=== PATIENT | male | born 1980 | race Two or more races ===

== ENCOUNTER 2019-04-29 23:15 | Inpatient (IN) | payer MEDICAID ==
[~2019-04-29] VITALS: Ht 157.5 cm; Wt 84.0 kg
--- NOTE | 2019-04-29 23:36 | NUR ---
ED Nurse Note: Pt ambulated to Ed from home c/o 03/01 Rsided lower abdominal pain with N. Pt vomitted last night, denies trauma. Pt is A&Ox4, VSS
[2019-04-29 23:48] VITALS: BP 126/79
--- NOTE | 2019-04-29 23:52 | Emergency Room Report ---
History of Present Illness General Chief Complaint: Abdominal Pain Source: Patient Present Illness HPI Disclaimer: Please note that this report is being documented using [employer] technology. This can lead to erroneous entry secondary to incorrect interpretation by the dictating instrument. HPI: 38-year-old male with no reported medical history presents for evaluation of abdominal pain. Symptoms started approximately 12 hours ago. He noted a lower abdominal cramping that was initially bilateral and suprapubic that is since migrated to the right lower quadrant. He has had multiple episodes of nonbloody and nonbilious emesis and continues to complain of nausea. Denies diarrhea, dysuria, flank pain or fever. No prior abdominal surgeries, no previous visits to the hospital or other instances of abdominal pain. No known sick contacts. No new foods or recent travel. Took some Tylenol earlier in the day without improvement. PMH: Denies PSH: Denies Allergies: Iodine listed in medical chart the patient denies Social Hx: Denies drug or alcohol abuse Allergies: Coded Allergies: No Known Allergies (Unverified , 04/29/19) Nursing Documentation-PMH Past Medical History: No Stated History Review of Systems All Other Systems: negative except mentioned in HPI Physical Exam Vital Signs Date Time Temp Pulse Resp B/P (MAP) Pulse Ox O2 Delivery O2 Flow Rate FiO2 04/29/19 23:30 99.3 82 18 126/79 (95) 95 Room Air General: Awake and alert, appears uncomfortable HEENT: NC/AT. EOMI. dry mucous membranes Cardiovascular: RRR. S1 and S2 normal. No murmur appreciated Resp: Normal work of breathing. No cough, wheezing or crackles appreciated Abdomen: Abdomen is soft, nondistended. Tender to palpation over McBurney's point with positive rebound. Rovsing sign is negative. Obturator and psoas signs are positive. CVA tenderness negative Skin: Intact. No abrasions, laceration or rash over the exposed skin MSK: Normal tone and bulk. Moving all extremities. No obvious deformity. Neuro: Awake and alert. Mentating appropriately. Back/Spine: No flank pain or CVA tenderness Medical Decision Making Diagnostic Impression: Primary Impression: Appendicitis ER Course 38-year-old male presents for evaluation of abdominal pain now 03/31 with nausea and vomiting of 12 hours duration. Differential includes was not limited to appendicitis, cholecystitis, pancreatitis, gastritis, gastroenteritis , constipation, diverticulitis, bowel obstruction. Appendicitis appears to be the most likely other than a viral syndrome or possible constipation as he has not had a bowel movement in 1 [address] scan of the abdomen as well as labs provide IV fluids, antiemetics and pain medications. Laboratory Tests Test 04/29/19 23:40 04/29/19 23:53 Urine Color Yellow Urine Appearance Clear Urine pH 8 (4.5-8.0) Urine Specific [place] 1.010 (1.005-1.035) Urine Protein 2+ (NEGATIVE) H Urine Glucose (UA) Negative (NEGATIVE) Urine Ketones Negative (NEGATIVE) Urine Blood Negative (NEGATIVE) Urine Nitrite Negative (NEGATIVE) Urine Bilirubin Negative (NEGATIVE) Urine Urobilinogen Normal MG/DL (0.0-1.0) Urine Leukocyte Esterase 1+ (NEGATIVE) H Urine RBC 0-2 /HPF (0 - 0) H Urine WBC 2-4 /HPF (0 - 0) Urine Squamous Epithelial Cells Occasional /LPF Urine Bacteria Occasional /HPF (NONE) Urine Mucus Few /LPF (NONE/OCC) H White Blood Count 22.7 K/UL (4.8-10.8) *H Red Blood Count 5.29 M/UL (4.70-6.10) Hemoglobin 15.8 G/DL (14.2-18.0) Hematocrit 43.9 % (42.0-52.0) Mean Corpuscular Volume 83 FL (80-99) Mean Corpuscular Hemoglobin 29.9 PG (27.0-31.0) Mean Corpuscular Hemoglobin Concent 36.0 G/DL (32.0-36.0) Red Cell Distribution Width 10.7 % (11.6-14.8) L Platelet Count 331 K/UL (150-450) Mean Platelet Volume 7.5 FL (6.5-10.1) Neutrophils (%) (Auto) % (45.0-75.0) Lymphocytes (%) (Auto) % (20.0-45.0) Monocytes (%) (Auto) % (1.0-10.0) Eosinophils (%) (Auto) % (0.0-3.0) Basophils (%) (Auto) % (0.0-2.0) Differential Total Cells Counted 100 Neutrophils % (Manual) 81 % (45-75) H Lymphocytes % (Manual) 13 % (20-45) L Monocytes % (Manual) 6 % (1-10) Eosinophils % (Manual) 0 % (0-3) Basophils % (Manual) 0 % (0-2) Band Neutrophils 0 % (0-8) Platelet Estimate Adequate Platelet Morphology Normal Sodium Level 141 MMOL/L (136-145) Potassium Level 3.3 MMOL/L (3.5-5.1) L Chloride Level 101 MMOL/L (98-107) Carbon Dioxide Level 31 MMOL/L (21-32) Anion Gap 10 mmol/L (5-15) Blood Urea Nitrogen 17 mg/dL (7-18) Creatinine 0.8 MG/DL (0.55-1.30) Estimate Glomerular Filtration Rate > 60 mL/min (>60) Glucose Level 145 MG/DL (74-106) H Calcium Level 8.7 MG/DL (8.5-10.1) Total Bilirubin 0.8 MG/DL (0.2-1.0) Aspartate Amino Transferase (AST) 24 U/L (15-37) Alanine Aminotransferase (ALT) 51 U/L (12-78) Alkaline Phosphatase 81 U/L (46-116) Total Protein 8.1 G/DL (6.4-8.2) Albumin 4.3 G/DL (3.4-5.0) Globulin 3.8 g/dL Albumin/Globulin Ratio 1.1 (1.0-2.7) Lipase 104 U/L (73-393) Reevaluation Time: 01:12 Last Vital Signs Date Time Temp Pulse Resp B/P (MAP) Pulse Ox O2 Delivery O2 Flow Rate FiO2 04/29/19 23:30 99.3 82 18 126/79 (95) 95 Room Air Reevaluation Impression CT scan shows a large fecalith and a dilated appendix without signs of perforation. There is some periappendiceal stranding consistent with acute appendicitis. Official CT interpretation is pending. Patient's vital signs remained stable. He does have an elevated white count and will be given Zosyn. Preop labs will be sent. Patient will require admission and surgical evaluation. Dr. Ni is aware the patient will evaluate in the morning. Will admit to Dr. Lukas garcia as a panel admission. Disposition: ADMITTED INPATIENT Condition: Serious Dann Mishra MD Apr 29, 2019 23:52
[2019-04-30] VITALS (16 sets, daily range): BP systolic 112–137; BP diastolic 60–80
[2019-04-30] MEDS ORDERED: Morphine Sulfate 4mg/ml Inj (IV USE ONLY) IVP ONE
[2019-04-30] MEDS ORDERED: Omnipaque-300 100ml vial INJ PRN
[2019-04-30 00:08] LABS: HEMATOCRIT 43.9 % (42.0-52.0); HEMOGLOBIN 15.8 G/DL (14.2-18.0); MEAN CORPUSCULAR VOLUME 83 FL (80-99); PLATELET COUNT 331 K/UL (150-450); RED BLOOD COUNT 5.29 M/UL (4.70-6.10); RED CELL DISTRIBUTION WIDTH 10.7 % (11.6-14.8)
[2019-04-30 00:09] LABS: WHITE BLOOD COUNT 22.7 K/UL (4.8-10.8)
[2019-04-30 00:10] LABS: APPEARANCE,URINE CLEAR; BILIRUBIN, URINE NEGATIVE (NEGATIVE); GLUCOSE, URINE (UA) NEGATIVE (NEGATIVE); KETONES,URINE NEGATIVE (NEGATIVE); LEUKOCYTE ESTERASE ,URINE 1+ (NEGATIVE); NITRITE,URINE NEGATIVE (NEGATIVE); PH,URINE 8 (4.5-8.0); PROTEIN,URINE 2+ (NEGATIVE); UROBILINOGEN,URINE NORMAL MG/DL (0.0-1.0)
[2019-04-30 00:11] LABS: COLOR,URINE YELLOW
[2019-04-30 00:17] LABS: ANION GAP 10 mmol/L (5-15); BLOOD UREA NITROGEN 17 mg/dL (7-18); CALCIUM 8.7 MG/DL (8.5-10.1); CARBON DIOXIDE 31 MMOL/L (21-32); CHLORIDE 101 MMOL/L (98-107); CREATININE 0.8 MG/DL (0.55-1.30); POTASSIUM 3.3 MMOL/L (3.5-5.1); SODIUM 141 MMOL/L (136-145)
[2019-04-30 00:22] LABS: ALANINE AMINOTRANSFERASE 51 U/L (12-78); ALBUMIN 4.3 G/DL (3.4-5.0); ALBUMIN/GLOBULIN RATIO 1.1 (1.0-2.7); ALKALINE PHOSPHATASE 81 U/L (46-116); ASPARTATE AMINO TRANSFERASE 24 U/L (15-37); BILIRUBIN,TOTAL 0.8 MG/DL (0.2-1.0)
[2019-04-30] MEDS ORDERED: Piperacillin/Tazobactam 3.375 GM in NS 110 ML IVPB ONE (01:15)
--- NOTE | 2019-04-30 01:23 | Diagnostic Imaging Report ---
EXAM: CT Abdomen and Pelvis With Intravenous Contrast CLINICAL HISTORY: PAIN TECHNIQUE: Axial computed tomography images of the abdomen and pelvis with intravenous contrast. CTDI is 16 mGy and DLP is 1073 mGy-cm. One or more of the following dose reduction techniques were used: automated exposure control, adjustment of the mA and or kV according to patient size, use of iterative reconstruction technique. COMPARISON: No relevant prior studies available. FINDINGS: Lung bases: Short segment linear subsegmental atelectasis in the lung bases. ABDOMEN: Liver: Unremarkable. No mass. Gallbladder and bile ducts: Unremarkable. No calcified stones. No ductal dilation. Pancreas: Unremarkable. No mass. No ductal dilation. Spleen: Unremarkable. No splenomegaly. Adrenals: Unremarkable. No mass. Kidneys and ureters: Unremarkable. No solid mass. No hydronephrosis. Stomach and bowel: There are prominent fluid-filled loops of small bowel is well. Fluid is seen within loops of colon. No obstruction. No mucosal thickening. PELVIS: Appendix: The appendix is abnormally dilated up to 12 mm with mucosal hyperenhancement and periappendiceal inflammation consistent with acute appendicitis. Intraluminal 8 mm appendicolith is noted. Bladder: Unremarkable. No mass. Reproductive: Unremarkable as visualized. ABDOMEN and PELVIS: Intraperitoneal space: Unremarkable. No free air. No significant fluid collection. Bones joints: No acute fracture. No dislocation. Soft tissues: Unremarkable. Vasculature: Unremarkable. No abdominal aortic aneurysm. Lymph nodes: Unremarkable. No enlarged lymph nodes. IMPRESSION: 1. Findings consistent with acute appendicitis. No free air or abscess. 2. Somewhat prominent fluid-filled loops of small bowel without bowel obstruction. Question reactive ileus or enteritis. <MYCVCSECTION> Critical Value [employer] 04 30 19 01:29 Call Doctor Regarding Appendicitis, called Dr. Shi on 04 30 01:28 (-08:00)
[2019-04-30 01:26] LABS: INR 1.1 (0.9-1.1)
--- NOTE | 2019-04-30 02:30 | NUR ---
TRANSFER TO FLOOR: Patient transferred to as ordered, per Dr Car. Report given to CHRISTOPHER Lea. Belongings and medications given to . Family and or S/O informed of transfer.
[2019-04-30] MEDS ORDERED: Morphine Sulfate 2mg/ml Inj(IV/IM USE ONLY) IVP PRN (02:45)
[2019-04-30] MEDS ORDERED: Morphine Sulfate 4mg/ml Inj (IV USE ONLY) IVP PRN (02:45)
--- NOTE | 2019-04-30 03:38 | NUR ---
ADMISSION NOTE: Pt admitted from ED at 0230. Pt is A/Ox4 with stable VS. Orders reviewed and physical assessment completed. Skin is intact. Pt oriented to room and call garduno usage. Belongings accounted for with RN. Bed in low position and locked, call garduno is within reach. Will continue to monitor. Dr. Gaytan paged at approx. 0300 for admission orders.
--- NOTE | 2019-04-30 07:25 | NUR ---
HAND-OFF: Report given to Ramo/Paula.
--- NOTE | 2019-04-30 07:25 | NUR ---
NURSE NOTE: Dr. Sykes was paged at 0300 and again at 0600 for admission orders. ED Doctor Dann Mishra placed standing orders overnight for pt. Charge nurse made aware. Nurse house moving supervisor made aware 0715.
--- NOTE | 2019-04-30 08:05 | NUR ---
NURSE NOTES: Dr. Sosa ordered D5NS @75ml/hr, Kcl 20meq IVPB one time. Order read back and will put it in.
[2019-04-30] MEDS ORDERED: D5NS 1,000 ML IV SCH (08:15)
--- NOTE | 2019-04-30 08:37 | Pre-Procedure Note/Attestation ---
Pre-Procedure Note/Attestation Complete Prior to Procedure Planned Procedure: not applicable Procedure Narrative: Laparoscopic appendectomy possible open appendectomy Indications for Procedure Pre-Operative Diagnosis: acute appendicitis Attestation I attest that I discussed the nature of the procedure; its benefits; risks and complications; and alternatives (and the risks and benefits of such alternatives ), prior to the procedure, with the patient (or the patient's legal health and safety representative). I attest that, if there was a reasonable possibility of needing a blood transfusion, the patient (or the patient's legal health and safety representative) was given the [facility] standardized written summary, pursuant to the [employer]ancarlos Deja Blood Safety Act ([place] Health and Safety Code # 1645, as amended). I attest that I re-evaluated the patient just prior to the surgery and that there has been no change in the patient's H&P, except as documented below: Francisco Ni MD Apr 30, 2019 08:37
--- NOTE | 2019-04-30 09:15 | Pre-op HX & Phy Repo 2 SIG ---
DATE OF ADMISSION: 04/30/2019 PREOPERATIVE CONSULTATION REASON FOR CONSULTATION: Abdominal pain. REQUESTING PHYSICIAN: ER Physician. HISTORY OF PRESENT ILLNESS: This is a 38-year-old male, who presented to emergency room complaining of abdominal pain since the night before last, which was 04/28/2019, which makes it basically 36 hours ago. This pain was initially located at the epigastrium and then it localized at right lower quadrant. The pain was associated with nausea and vomiting. He had a normal bowel movement 2 days ago. He denies any fever, cough, dysuria, or frequency. He denies any previous history of similar pain. PAST MEDICAL HISTORY: He denies allergies, asthma, diabetes, hypertension, cardiac or renal diseases. PAST SURGICAL HISTORY: None. MEDICATIONS: None. SOCIAL HISTORY: The patient is a 38-year-old male, who is and father of 2 children. 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 Denies smoked. Drinks occasionally. REVIEW OF SYSTEMS: Noncontributory. PHYSICAL EXAMINATION: GENERAL: The patient appeared to be a well-developed, well-nourished, 38-year-old, male, lying on the bed, complaining of abdominal pain. HEENT: Head is normocephalic and atraumatic. Eyes, pupils are equal, round, and reactive to light. Mouth is clear. NECK: There is no palpable thyromegaly or adenopathy. CHEST: Clear to auscultation and percussion. HEART: There is no gallop or murmur. S1 and S2 are within normal limits. ABDOMEN: Soft and flat with tenderness and guarding at right lower quadrant. There is no organomegaly. Bowel sounds are audible. GENITAL: Normal. EXTREMITIES: Within normal limits. LABORATORY DATA: CBC has shown a WBC of 22,700 with a left shift. Chemistry is normal except for the potassium, which is 3.2 and the blood glucose is about 150. The urine is within normal limits. The CAT scan of the abdomen has been interpreted as acute appendicitis. ASSESSMENT: Acute appendicitis. PLAN: After rehydration, the patient will undergo a laparoscopic appendectomy, possible open appendectomy. The risks and benefits have been explained to him. He understood and granted consent. Francisco Ni M.D. DR: VIK JOB#: [id number] CC:
[2019-04-30] MEDS ORDERED: Sterile Water Irrig 1000ml IRRIG ONE (09:30)
[2019-04-30] MEDS ORDERED: NS Irrig 1000ml ONE (09:30)
[2019-04-30] MEDS ORDERED: LR 1000ml ONE (09:30)
[2019-04-30] MEDS ORDERED: Rocuronium Bromide 50mg/5ml Inj IV ONE (09:30)
[2019-04-30] MEDS ORDERED: LR 1000ml 1,000 ML IVLG SCH (09:40)
--- NOTE | 2019-04-30 09:40 | Anethesia Preoperative Eval ---
Anesthesia Pre-op PMH/ROS General Date of Evaluation: Apr 30, 2019 Time of Evaluation: 09:36 Anesthesiologist: Maya ASA Score: ASA 2 - Emergency Mallampati Score Class I : Soft palate, uvula, fauces, pillars visible Class II: Soft palate, uvula, fauces visible Class III: Soft palate, base of uvula visible Class IV: Only hard plate visible Mallampati Classification: Class III Surgeon: Raine Diagnosis: Acute Appendicitis Surgical Procedure: Laparoscopic Appendectomy Anesthesia History: none Family History: no anesthesia problems Allergies: Coded Allergies: No Known Allergies (Unverified , 04/29/19) Medications: see eMAR Patient NPO?: Yes Past Medical History Other: obesity - BMIO 34 Anesthesia Pre-op Phys. Exam Physician Exam Last Vital Signs Date Time Temp Pulse Resp B/P (MAP) Pulse Ox O2 Delivery O2 Flow Rate FiO2 04/30/19 09:00 Room Air 04/30/19 08:00 99.9 68 18 118/68 (85) 96 Constitutional: NAD Neurologic: CN 2-12 intact Cardiovascular: RRR Respiratory: CTA Gastrointestinal: S/NT/ND Airway Exam Mallampati Score: Class III MO: limited ROM: full Teeth: intact Anesthesia Pre-op A/P Labs Hematology Test 04/29/19 23:53 White Blood Count 22.7 K/UL (4.8-10.8) *H Red Blood Count 5.29 M/UL (4.70-6.10) Hemoglobin 15.8 G/DL (14.2-18.0) Hematocrit 43.9 % (42.0-52.0) Mean Corpuscular Volume 83 FL (80-99) Mean Corpuscular Hemoglobin 29.9 PG (27.0-31.0) Mean Corpuscular Hemoglobin Concent 36.0 G/DL (32.0-36.0) Red Cell Distribution Width 10.7 % (11.6-14.8) L Platelet Count 331 K/UL (150-450) Mean Platelet Volume 7.5 FL (6.5-10.1) Neutrophils (%) (Auto) % (45.0-75.0) Lymphocytes (%) (Auto) % (20.0-45.0) Monocytes (%) (Auto) % (1.0-10.0) Eosinophils (%) (Auto) % (0.0-3.0) Basophils (%) (Auto) % (0.0-2.0) Differential Total Cells Counted 100 Neutrophils % (Manual) 81 % (45-75) H Lymphocytes % (Manual) 13 % (20-45) L Monocytes % (Manual) 6 % (1-10) Eosinophils % (Manual) 0 % (0-3) Basophils % (Manual) 0 % (0-2) Band Neutrophils 0 % (0-8) Platelet Estimate Adequate Platelet Morphology Normal Coagulation Test 04/29/19 23:53 Prothrombin Time 11.4 SEC (9.30-11.50) Prothromb Time International Ratio 1.1 (0.9-1.1) Activated Partial Thromboplast Time 28 SEC (23-33) Chemistry Test 04/29/19 23:53 Sodium Level 141 MMOL/L (136-145) Potassium Level 3.3 MMOL/L (3.5-5.1) L Chloride Level 101 MMOL/L (98-107) Carbon Dioxide Level 31 MMOL/L (21-32) Anion Gap 10 mmol/L (5-15) Blood Urea Nitrogen 17 mg/dL (7-18) Creatinine 0.8 MG/DL (0.55-1.30) Estimat Glomerular Filtration Rate > 60 mL/min (>60) Glucose Level 145 MG/DL (74-106) H Calcium Level 8.7 MG/DL (8.5-10.1) Total Bilirubin 0.8 MG/DL (0.2-1.0) Aspartate Amino Transf (AST/SGOT) 24 U/L (15-37) Alanine Aminotransferase (ALT/SGPT) 51 U/L (12-78) Alkaline Phosphatase 81 U/L (46-116) Total Protein 8.1 G/DL (6.4-8.2) Albumin 4.3 G/DL (3.4-5.0) Globulin 3.8 g/dL Albumin/Globulin Ratio 1.1 (1.0-2.7) Lipase 104 U/L (73-393) Risk Assessment & Plan Assessment: ASA 2E Plan: GA, SED, GlideScope Go Status Change Before Surgery: No Pre-Antibiotics Dru Gram Ancef IV Given Within 1 Hr of Incision: Yes Time Given: 10:01 Indra Trejo MD Apr 30, 2019 09:40
[2019-04-30] MEDS ORDERED: Dexamethasone 4mg/ml vial ONE (09:43)
[2019-04-30] MEDS ORDERED: Lidocaine 1% MPF 10mg/ml 5ml ONE (09:43)
[2019-04-30] MEDS ORDERED: Propofol 200mg/20ml IV ONE (09:43)
[2019-04-30] MEDS ORDERED: Sodium Chloride 10ml vial INJ ONE (09:43)
[2019-04-30] MEDS ORDERED: Ketamine 500mg Inj ONE (09:44)
[2019-04-30] MEDS ORDERED: fentaNYL 100 mcg/2 mL IV ONE ×2 (09:44→10:51)
[2019-04-30] MEDS ORDERED: Hydromorphone 0.5mg/0.5ml inj IVP PRN ×2 (09:45→14:00)
[2019-04-30] MEDS ORDERED: DiphenhydrAMINE 50mg/ml Inj IVP PRN (09:45)
[2019-04-30] MEDS ORDERED: Labetalol 5mg/ml 20ml vial IV PRN (09:45)
[2019-04-30] MEDS ORDERED: Atropine Sulfate 0.4mg/ml inj IVP PRN (09:45)
[2019-04-30] MEDS ORDERED: HYDROcodone/Acetamin 7.5/325 tab ORAL PRN (09:45)
[2019-04-30] MEDS ORDERED: fentaNYL 100 mcg/2 mL IV PRN (09:45)
[2019-04-30] MEDS ORDERED: oxyCODONE HCL/Acetaminophen 5/325mg ORAL PRN (09:45)
[2019-04-30] MEDS ORDERED: Acetaminophen (Non formulary) 100 ML IV ONE (09:45)
[2019-04-30] MEDS ORDERED: Midazolam 2mg/2ml Inj IVP PRN (09:45)
[2019-04-30] MEDS ORDERED: Ketorolac 30mg Inj IV PRN ×2 (09:45)
[2019-04-30] MEDS ORDERED: HYDROcodone/Acetamin 5/325 tab ORAL PRN (09:45)
[2019-04-30] MEDS ORDERED: LORazepam Inj 2mg/ml 1ml IV PRN (09:45)
[2019-04-30] MEDS ORDERED: Meperidine 50mg/ml Inj(FOR RIGORS ONLY) IVP PRN (09:45)
[2019-04-30] MEDS ORDERED: Metoclopramide 10mg/2ml Inj IVP PRN ×2 (09:45→14:00)
[2019-04-30] MEDS ORDERED: Bacitracin 50000 Units Vial ONE (09:49)
[2019-04-30] MEDS ORDERED: Bupivacaine 0.25% Inj 30ml INJ ONE (09:49)
--- NOTE | 2019-04-30 09:50 | NUR ---
NURSE NOTES: Patient is off the unit for surgery in stable condition.
[2019-04-30] MEDS ORDERED: Piperacillin/Tazobactam 3.375 GM in NS 110 ML IVPB SCH (10:00)
--- NOTE | 2019-04-30 10:34 | Immediate Post-Op Evaluation ---
Immediate Post-Op Evalulation Immediate Post-Op Evalulation Procedure: Laparoscopic Appendectomy Date of Evaluation: Apr 30, 2019 Time of Evaluation: 12:04 IV Fluids: 1000 LR Blood Products: 0 Estimated Blood Loss: 50 Urinary Output: 0 Blood Pressure Systolic: 137 Blood Pressure Diastolic: 79 Pulse Rate: 81 Respiratory Rate: 16 O2 Sat by Pulse Oximetry: 98 Temperature (Fahrenheit): 98.1 Pain Score (1-10): 2 Nausea: No Vomiting: No Complications 0 Patient Status: awake, reacts, patent, extubated, none Hydration Status: adequate Dru Gram Ancef IV Given Within 1 Hr of Incision: Yes Time Given: 10:01 Indra Trejo MD Apr 30, 2019 10:34
--- NOTE | 2019-04-30 10:35 | 48 Hour Post Anesthesia Eval ---
Post Anesthesia Evaluation Procedure: Laparoscopic Appendectomy Date of Evaluation: Apr 30, 2019 Time of Evaluation: 12:04 Blood Pressure Systolic: 136 0: 74 Pulse Rate: 78 Respiratory Rate: 18 Temperature (Fahrenheit): 98.4 O2 Sat by Pulse Oximetry: 99 Airway: patent Nausea: No Vomiting: No Pain Intensity: 2 Hydration Status: adequate Cardiopulmonary Status: Stable Mental Status/LOC: patient returned to baseline Follow-up Care/Observations: 0 Post-Anesthesia Complications: 0 Follow-up care needed: N/A Indra Trejo MD Apr 30, 2019 10:35
[2019-04-30] MEDS ORDERED: Neostigmine 1mg/ml 10ml Inj ONE (10:36)
[2019-04-30] MEDS ORDERED: Glycopyrrolate 0.2mg/ml 1ml Vial ONE (10:36)
[2019-04-30] MEDS ORDERED: Lidocaine 1% Plain 30 ml INJ ONE (10:53)
--- NOTE | 2019-04-30 11:51 | Brief Operative Note ---
Immediate Post Operative Note Operative Note Pre-op Diagnosis: acute appendicitis Procedure: attempted laparoscopic appendectomy, open appendectomy Post-op Diagnosis: same as pre-op Findings: consistent w/pre-op dx studies Surgeon: MD Compa Budget And Policy Analyst: none Anesthesiologist: Dr. Joseph Anesthesia: general Specimen: yes Complications: none Condition: stable Fluids: per anesthesiologist Estimated Blood Loss: minimal Drains: none Implant(s) used?: No Francisco Ni MD Apr 30, 2019 11:51
--- NOTE | 2019-04-30 12:55 | NUR ---
NURSE NOTES: Patient came to the unit. Received report from Chana Jiménez, FINISHER POLISHER. Pt is a/o x 4, in bed. No respiratory discomfort noted. Abdominal surgical site dressing is C/D/I. Denies any pain at this time. Rt AC & Lt wrist IV access is patent. is at bedside. Will continue to monitor.
[2019-04-30] MEDS ORDERED: Acetaminophen 650 MG SUPP RECTAL PRN (14:00)
[2019-04-30] MEDS: Pantoprazole Inj IVP SCH (14:31)
[2019-04-30] MEDS: D5 1/2NS w/KCl 20mEq 1,000 ML IV SCH ×2 (14:31→23:54)
[2019-04-30] MEDS: Piperacillin/Tazobactam 3.375 GM in NS 110 ML IVPB SCH ×2 (14:32→22:23)
[2019-04-30] MEDS ORDERED: NS 500ML ONE (14:51)
--- NOTE | 2019-04-30 16:04 | History and Physical ---
History of Present Illness General Date patient seen: Apr 30, 2019 Time patient seen: 14:20 Reason for Hospitalization: Abdominal Pain Present Illness HPI 38-year-old male, who presented to emergency room complaining of abdominal pain since the night of 04/28/2019, which is more than 36 hours ago. This pain was initially located at the epigastrium and then it localized at right lower quadrant. The pain was associated with nausea and vomiting. He had a normal bowel movement 2 days ago. He denies any fever, cough, dysuria, or frequency. He denies any previous history of similar pain. In the ER, CT abdomen was done and reported as acute appendicitis. General Surgery consultation was requested and admission to medicine service was requested. He was started on IVF and kept NPO. Surgery has evaluated his and taken him to the OR for laparoscopic appendectomy. Surgical report is not available at this time. The patient is feeling better, R lower quadrant pain is better and still moderately present. Surgery has orders for NPO for now. Allergies: Coded Allergies: No Known Allergies (Unverified , 04/29/19) Patient History Healthcare decision maker Resuscitation status Full Code Advanced Directive on File No Review of Systems Gastrointestinal: Reports: abdominal pain All Other Systems: negative except mentioned in HPI Physical Exam General Appearance: WD/WN Lines, tubes and drains: peripheral HEENT: atraumatic Neck: non-tender Respiratory/Chest: lungs clear Cardiovascular/Chest: normal peripheral pulses, normal rate Abdomen: non tender, soft Skin Exam: normal pigmentation Neurologic: chief chemist II-XII grossly normal Last 24 Hour Vital Signs Date Time Temp Pulse Resp B/P (MAP) Pulse Ox O2 Delivery O2 Flow Rate FiO2 04/30/19 13:55 98.3 73 18 122/62 (82) 95 04/30/19 12:40 99.2 76 20 119/64 96 Nasal Cannula 3 04/30/19 12:30 77 18 120/62 97 Nasal Cannula 3 04/30/19 12:20 74 19 127/70 96 Nasal Cannula 3 04/30/19 12:10 71 18 131/72 94 Nasal Cannula 3 04/30/19 12:00 80 17 127/72 95 Simple Mask 6 04/30/19 11:55 80 16 124/73 97 Simple Mask 6 04/30/19 11:53 98.1 80 14 137/79 96 Simple Mask 6 04/30/19 11:50 78 18 99 04/30/19 11:49 81 16 98 04/30/19 09:00 Room Air 04/30/19 08:00 99.9 68 18 118/68 (85) 96 04/30/19 04:18 98.9 73 18 115/62 (79) 95 04/30/19 03:29 Room Air 04/30/19 03:26 Room Air 04/30/19 02:41 98.9 67 18 123/71 (88) 97 04/30/19 02:30 99.3 82 18 126/79 95 Room Air 04/30/19 01:30 99.1 80 18 132/80 96 Room Air 04/29/19 23:48 82 18 Room Air 04/29/19 23:48 99.3 82 18 126/79 95 Room Air 04/29/19 23:30 99.3 82 18 126/79 (95) 95 Room Air Intake and Output 04/29/19 04/30/19 18:59 06:59 Intake Total 1250 ml Output Total 1 ml Balance 1249 ml Intake IV Total 1250 ml Output Urine Total 1 ml Laboratory Tests Test 04/29/19 23:40 04/29/19 23:53 Urine Color Yellow Urine Appearance Clear Urine pH 8 (4.5-8.0) Urine Specific [place] 1.010 (1.005-1.035) Urine Protein 2+ (NEGATIVE) H Urine Glucose (UA) Negative (NEGATIVE) Urine Ketones Negative (NEGATIVE) Urine Blood Negative (NEGATIVE) Urine Nitrite Negative (NEGATIVE) Urine Bilirubin Negative (NEGATIVE) Urine Urobilinogen Normal MG/DL (0.0-1.0) Urine Leukocyte Esterase 1+ (NEGATIVE) H Urine RBC 0-2 /HPF (0 - 0) H Urine WBC 2-4 /HPF (0 - 0) Urine Squamous Epithelial Cells Occasional /LPF Urine Bacteria Occasional /HPF (NONE) Urine Mucus Few /LPF (NONE/OCC) H White Blood Count 22.7 K/UL (4.8-10.8) *H Red Blood Count 5.29 M/UL (4.70-6.10) Hemoglobin 15.8 G/DL (14.2-18.0) Hematocrit 43.9 % (42.0-52.0) Mean Corpuscular Volume 83 FL (80-99) Mean Corpuscular Hemoglobin 29.9 PG (27.0-31.0) Mean Corpuscular Hemoglobin Concent 36.0 G/DL (32.0-36.0) Red Cell Distribution Width 10.7 % (11.6-14.8) L Platelet Count 331 K/UL (150-450) Mean Platelet Volume 7.5 FL (6.5-10.1) Neutrophils (%) (Auto) % (45.0-75.0) Lymphocytes (%) (Auto) % (20.0-45.0) Monocytes (%) (Auto) % (1.0-10.0) Eosinophils (%) (Auto) % (0.0-3.0) Basophils (%) (Auto) % (0.0-2.0) Differential Total Cells Counted 100 Neutrophils % (Manual) 81 % (45-75) H Lymphocytes % (Manual) 13 % (20-45) L Monocytes % (Manual) 6 % (1-10) Eosinophils % (Manual) 0 % (0-3) Basophils % (Manual) 0 % (0-2) Band Neutrophils 0 % (0-8) Platelet Estimate Adequate Platelet Morphology Normal Prothrombin Time 11.4 SEC (9.30-11.50) Prothromb Time International Ratio 1.1 (0.9-1.1) Activated Partial Thromboplast Time 28 SEC (23-33) Sodium Level 141 MMOL/L (136-145) Potassium Level 3.3 MMOL/L (3.5-5.1) L Chloride Level 101 MMOL/L (98-107) Carbon Dioxide Level 31 MMOL/L (21-32) Anion Gap 10 mmol/L (5-15) Blood Urea Nitrogen 17 mg/dL (7-18) Creatinine 0.8 MG/DL (0.55-1.30) Estimat Glomerular Filtration Rate > 60 mL/min (>60) Glucose Level 145 MG/DL (74-106) H Calcium Level 8.7 MG/DL (8.5-10.1) Total Bilirubin 0.8 MG/DL (0.2-1.0) Aspartate Amino Transf (AST/SGOT) 24 U/L (15-37) Alanine Aminotransferase (ALT/SGPT) 51 U/L (12-78) Alkaline Phosphatase 81 U/L (46-116) Total Protein 8.1 G/DL (6.4-8.2) Albumin 4.3 G/DL (3.4-5.0) Globulin 3.8 g/dL Albumin/Globulin Ratio 1.1 (1.0-2.7) Lipase 104 U/L (73-393) Height (Feet): 5 Height (Inches): 2.00 Weight (Pounds): 186 Medications Current Medications Medications (Trade) Dose Ordered Sig/Emily Route PRN Reason Start Time Stop Time Status Last Admin Dose Admin Acetaminophen (Tylenol) 650 mg Q4H PRN RECTAL Mild Pain (Pain Scale 1-3) 04/30/19 14:00 05/30/19 13:59 Dextrose/ Electrolytes 1,000 ml @ 100 mls/hr Q10H IV 04/30/19 14:00 05/30/19 13:59 04/30/19 14:31 Gentamicin Sulfate 300 mg/ Sodium Chloride 117.5 ml @ 117.5 mls/ hr ONCE ONCE IVPB 04/30/19 18:00 04/30/19 18:59 Heparin Sodium (Porcine) (Heparin 5000 units/ml) 5,000 units EVERY 12 HOURS SUBQ 05/01/19 09:00 05/31/19 08:59 Hydromorphone HCl (Dilaudid) 0.5 mg Q3H PRN IVP Pain Score 1-3 04/30/19 14:00 05/07/19 13:59 Hydromorphone HCl (Dilaudid) 1 mg Q3H PRN IVP pain score 4-6 04/30/19 14:00 05/07/19 13:59 Iohexol (OMNIPAQUE-300 100ml) 100 ml NOW PRN INJ Radiology Procedure 04/30/19 00:00 05/01/19 23:48 Metoclopramide HCl (Reglan) 10 mg Q6H PRN IVP Nausea & Vomiting 04/30/19 14:00 05/30/19 13:59 Morphine Sulfate (Morphine Sulfate) 2 mg PRN PRN IVP Moderate Pain (Pain Scale 4-6) 04/30/19 02:45 Pantoprazole (Protonix) 40 mg DAILY IVP 04/30/19 14:00 05/30/19 13:59 04/30/19 14:31 Piperacillin Sod/ Tazobactam Sod 3.375 gm/Sodium Chloride 110 ml @ 27.5 mls/hr EVERY 8 HOURS IVPB 04/30/19 14:00 05/05/19 13:59 04/30/19 14:32 Assessment/Plan Status: doing well Assessment/Plan: 38 y M admitted to the hospital due to acute abdominal pain found to be secondary to: # Acute Appendicitis - S/p Lap appendectomy - Follow up surgical report currently pending - IVF while NPO per surgery recommendation - Pain control - Activity as tolerated - Anti nausea emetic as needed. - AM labs - Monitor for post operative complications - DVT ppx early ambulation, low risk - GI ppx with PPI FULL CODE dAa Sosa MD Apr 30, 2019 16:04
[2019-04-30] MEDS ORDERED: D5NS 1000ml IV ONE (16:47)
[2019-04-30] MEDS ORDERED: Tubing IV Secondary IV ONE (16:47)
[2019-04-30] MEDS ORDERED: Gentamicin inj 300 MG in NS 110 ML IVPB ONE (18:00)
--- NOTE | 2019-04-30 18:10 | NUR ---
CASE MANAGEMENT: INITIAL REVIEW 38 YO M PRESENTED TO ED FROM HOME CC: ABD PAIN PMHx: DENIES SI:APPENDICITIS. T 99.3 HR 82 RR 18 B/P 126/79 SATS 95% ON RA WBC 22.7 K 3.3 GLU 145 IS: ZOFRAN IV X1 MORPHINE IV X1 NS BOLUS X1 ZOSYN IV X1 CT ABD/PELVIS IMPRESSION: 1. Findings consistent with acute appendicitis. No free air or abscess. 2. Somewhat prominent fluid-filled loops of small bowel without bowel obstruction. Question reactive ileus or enteritis. PATIENT ADMITTED TO MED/SURG 04/30/2019 @ 0148 DCP: PATIENT TO BE DISCHARGED TO HOME ONCE MEDICALLY CLEARED. PLAN OF CARE: Pre-op Diagnosis: acute appendicitis Procedure: attempted laparoscopic appendectomy, open appendectomy Addendum: 04/30/19 at 193 by Lilly Oquendo CM INTERQUAL MET Addendum: 04/30/19 at 194 by Lilly Oquendo CM INTERQUAL MET
--- NOTE | 2019-04-30 19:15 | Operative Note - Dictated ---
DATE OF OPERATION: 04/30/2019 PREOPERATIVE DIAGNOSIS: Acute appendicitis. POSTOPERATIVE DIAGNOSIS: Acute appendicitis. OPERATION: 1. Attempted laparoscopic appendectomy. 2. Open appendectomy. COMPLICATIONS: None. SURGEON: Francisco Ni M.D. RELIGIOUS LEADER: None. ANESTHESIA: General with endotracheal tube. ANESTHESIOLOGIST: Indra Trejo M.D. INDICATION: This is a 38-year-old male, who presented to emergency room complaining of abdominal pain since April 28, 2019 at night. He stated that the pain initially was epigastrium and then it localized to the right lower quadrant. This pain was associated with nausea and vomiting. Physical examination showed tenderness and guarding at right lower quadrant. CBC showed a WBC of 22,700 with a left shift. CAT scan of the abdomen was interpreted as acute appendicitis. DESCRIPTION OF PROCEDURE: The patient was placed supine on the operating table and after general anesthesia with endotracheal tube, the abdomen was properly prepped and draped. Initially, a small incision was given above the umbilicus through which a Veress needle was introduced into the intraperitoneal cavity. This cavity was insufflated up to 15 mmHg and then the Veress needle was removed and a 5 mm trocar was placed in the intraperitoneal cavity through the incision above the umbilicus. The laparoscope and camera was introduced into the intraperitoneal cavity through the trocar above the umbilicus. Under direct vision, a 5 mm trocar was placed at the suprapubic area and a 12 mm trocar was placed at the left lower quadrant of the abdomen. Initially, a rapid exploration was performed which showed the diaphragms to be normal. The part of the stomach that could be seen was normal. Liver was normal. The bowels were covered with omentum. There was some turbid fluid on the right paracolic gutter and the bowels were distended. Exploration of the right lower quadrant cavity was performed and the cecum was identified. Exploration of the right lower quadrant cavity was performed and finally the tip of the appendix was identified, which was distended and severely inflamed. The tip of the appendix was grasped and dissection was performed. There was very severe adhesion of the tissue in this area beside appendix was retrocecal and the dissection was impossible. I tried for a long time to dissect the appendix, but only a part of it was exposed and as I did not have full length of the appendix, the decision was made to convert it to open. The trocars were removed and a transverse incision was given in the right lower quadrant of the abdomen. This incision was carried sharply through subcutaneous tissue and Demarco fascia. The aponeurosis of the external oblique was opened up along with the fibers. The muscles were split and peritoneum was incised. The appendix was identified and grasped with the Debbi and then blunt dissection was performed. Finally the mesoappendix was exposed and it was ligated with 0 chromic and transected. Further dissection of the appendix was performed which extended to the cecum and the cecum could not be moved any way in situ. The base of the appendix was ligated with 0 chromic. It was reinforced with a hemoclip and the appendix was removed. After removal of the appendix, the intraperitoneal cavity was irrigated with antibiotic solution and then the posterior fascia and peritoneum was approximated with running suture of 0 Vicryl. The muscles were approximated with a few interrupted sutures of 0 Vicryl and then the fascia. Aponeurosis of the external oblique was approximated with running subcuticular suture of 0 Vicryl and the subcutaneous tissue was irrigated with antibiotic solution, then the skin incisions were infiltrated with total of 30 mL of Marcaine 0.25% and they were approximated with multiple skin adele. The patient tolerated the procedure very well and was transferred to recovery room in stable condition and extubated. COUNTS: Sponge and needle count correct. ESTIMATED BLOOD LOSS: 10 mL. CONDITION: Condition of the patient at the end of procedure is stable. Francisco Ni M.D. DR: ISRAEL JOB#: [id number] CC:
--- NOTE | 2019-04-30 19:30 | NUR ---
NURSE NOTES: Receive a report from CHRISTOPHER Ralph. Round is done. Pt is awake and alert. Breathing is even and non labored. No acute distress noted. Op site dressing kept dry and clean without bleeding or oozing. No chilling or febrile sensation. On IV hydration and anti-biotics treatment. On SCDs bilateral. Call light within reach. Will continue to monitor.
--- NOTE | 2019-04-30 19:35 | NUR ---
HAND-OFF: Report given to CHRISTOPHER Mera.
[2019-05-01] VITALS: BP 120/70
[2019-05-01] MEDS: HYDROmorphone 1mg/ml Carpuject IVP PRN ×4 (03:07→19:30)
[2019-05-01 04:00] VITALS: BP 108/62
[2019-05-01] MEDS: Piperacillin/Tazobactam 3.375 GM in NS 110 ML IVPB SCH ×3 (05:41→21:40)
--- NOTE | 2019-05-01 06:00 | NUR ---
NURSE NOTES: No chilling or febrile sensation. No N/V noted. No acute distress noted. Encourage I/S every hour while awake. No gas pass yet but noted BS. Op site kept dry and clean. Will continue to monitor.
[2019-05-01 07:09] LABS: MEAN CORPUSCULAR VOLUME 86 FL (80-99); PLATELET COUNT 261 K/UL (150-450); RED BLOOD COUNT 4.77 M/UL (4.70-6.10); RED CELL DISTRIBUTION WIDTH 11.5 % (11.6-14.8); WHITE BLOOD COUNT 19.4 K/UL (4.8-10.8)
[2019-05-01 07:25] LABS: ANION GAP 9 mmol/L (5-15); BLOOD UREA NITROGEN 12 mg/dL (7-18); CALCIUM 7.9 MG/DL (8.5-10.1); CARBON DIOXIDE 24 MMOL/L (21-32); CHLORIDE 105 MMOL/L (98-107); CREATININE 0.7 MG/DL (0.55-1.30); POTASSIUM 4.3 MMOL/L (3.5-5.1); SODIUM 138 MMOL/L (136-145)
--- NOTE | 2019-05-01 07:29 | NUR ---
NURSE NOTES: WALKING ROUNDS DONE WITH OUTGOING RN. PATIENT AWAKE IN BED.SURGICAL ABDOMINAL SITES ASSESSED; C/D/I. DENIES FLATUS AT THIS TIME. PATIENT TAUGHT TO SPLINT SURGICAL SITE WHEN C/D/B.RETURN DEMONSTRATION SUCCESSFUL. DISCUSSED PLAN OF CARE FOR THE DAY.VERBALIZED UNDERSTANDING. BED IN LOW AND LOCKED POSITION, CALL LIGHT WITHIN REACH.
--- NOTE | 2019-05-01 07:30 | NUR ---
HAND-OFF: Report given to CHRISTOPHER Flores. Round is done.
[2019-05-01] MEDS: Pantoprazole Inj IVP SCH (07:55)
[2019-05-01 08:00] VITALS: BP 117/67
[2019-05-01] MEDS: Heparin 5000 units/ml inj SUBQ SCH ×2 (09:53→21:41)
--- NOTE | 2019-05-01 10:00 | NUR ---
NURSE NOTES: AMBULATED PATIENT FROM ROOM 312 TO NURSING STATION. GAIT STEADY. C/O SURGICAL PAIN 09/29. PATIENT ENCOURAGE DTO C/D/B AND SPLINT AREA WHILE PERFORMING. DENIES WEAKNESS. SLIGHT DIZZINESS. SURGEON HERE TO SEE PATIENT. REPORTED AMBULATION TO MD. NEW ORDERS RECIEVED FOR TOMORROW. PATIENT KEPT INFORMED.
[2019-05-01] MEDS: D5 1/2NS w/KCl 20mEq 1,000 ML IV SCH ×2 (10:03→19:31)
--- NOTE | 2019-05-01 10:11 | General Surgery Progress Note ---
General Surgery-Progress Note Subjective Procedure Performed attempted laparoscopic appendectomy, open appendectomy Symptoms: improved Objective Last 24 Hour Vital Signs Date Time Temp Pulse Resp B/P (MAP) Pulse Ox O2 Delivery O2 Flow Rate FiO2 05/01/19 09:00 Room Air 05/01/19 08:25 99.2 05/01/19 08:00 99.2 70 19 117/67 (84) 97 05/01/19 04:00 98.2 74 18 108/62 (77) 95 05/01/19 00:00 99.7 73 18 120/70 (87) 94 04/30/19 21:00 Room Air 04/30/19 20:00 100.3 75 18 115/63 (80) 95 04/30/19 18:00 101.1 04/30/19 18:00 101.1 04/30/19 16:30 100.7 82 18 119/68 (85) 96 04/30/19 13:55 98.3 73 18 122/62 (82) 95 04/30/19 12:55 99.7 74 20 123/60 (81) 95 04/30/19 12:40 99.2 76 20 119/64 96 Nasal Cannula 3 04/30/19 12:30 77 18 120/62 97 Nasal Cannula 3 04/30/19 12:20 74 19 127/70 96 Nasal Cannula 3 04/30/19 12:10 71 18 131/72 94 Nasal Cannula 3 04/30/19 12:00 80 17 127/72 95 Simple Mask 6 04/30/19 11:55 80 16 124/73 97 Simple Mask 6 04/30/19 11:53 98.1 80 14 137/79 96 Simple Mask 6 04/30/19 11:50 78 18 99 04/30/19 11:49 81 16 98 I&O Intake and Output 04/30/19 05/01/19 19:00 07:00 Intake Total 1485.0 ml 1227.5 ml Output Total 11 ml 500 ml Balance 1474.0 ml 727.5 ml Intake IV Total 1485.0 ml 1227.5 ml Output Urine Total 1 ml 500 ml Estimated Blood Loss 10 ml # Voids 2 Dressing: dry Drains: none Respiratory: clear Abdomen: soft, tenderness, present bowel sounds Extremities: no tenderness Laboratory Tests Test 05/01/19 05:25 White Blood Count 19.4 K/UL (4.8-10.8) H Red Blood Count 4.77 M/UL (4.70-6.10) Hemoglobin 14.0 G/DL (14.2-18.0) L Hematocrit 41.0 % (42.0-52.0) L Mean Corpuscular Volume 86 FL (80-99) Mean Corpuscular Hemoglobin 29.3 PG (27.0-31.0) Mean Corpuscular Hemoglobin Concent 34.1 G/DL (32.0-36.0) Red Cell Distribution Width 11.5 % (11.6-14.8) L Platelet Count 261 K/UL (150-450) Mean Platelet Volume 7.8 FL (6.5-10.1) Neutrophils (%) (Auto) % (45.0-75.0) Lymphocytes (%) (Auto) % (20.0-45.0) Monocytes (%) (Auto) % (1.0-10.0) Eosinophils (%) (Auto) % (0.0-3.0) Basophils (%) (Auto) % (0.0-2.0) Neutrophils % (Manual) Pending Lymphocytes % (Manual) Pending Platelet Estimate Pending Platelet Morphology Pending Sodium Level 138 MMOL/L (136-145) Potassium Level 4.3 MMOL/L (3.5-5.1) Chloride Level 105 MMOL/L (98-107) Carbon Dioxide Level 24 MMOL/L (21-32) Anion Gap 9 mmol/L (5-15) Blood Urea Nitrogen 12 mg/dL (7-18) Creatinine 0.7 MG/DL (0.55-1.30) Estimat Glomerular Filtration Rate > 60 mL/min (>60) Glucose Level 130 MG/DL (74-106) H Calcium Level 7.9 MG/DL (8.5-10.1) L Assessment Additional Comments S/P Acute Appy Plan Additional Comments Continue as before Francisco Ni MD May 01, 2019 10:11
--- NOTE | 2019-05-01 11:37 | General Progress Note ---
Assessment/Plan Status: doing well Assessment/Plan: 38 y M admitted to the hospital due to acute abdominal pain found to be secondary to: # Acute Appendicitis - S/p Lap appendectomy with conversion to open appendectomy, POD # 1 - Follow up surgery input. - IVF while NPO per surgery recommendation - Pain control - Activity as tolerated - Anti nausea emetic as needed. - AM labs, monitor leukocytosis. IV antibiotic Zosyn in place. - Monitor for post operative complications - DVT ppx early ambulation, low risk - GI ppx with PPI FULL CODE Subjective Date patient seen: May 01, 2019 Time patient seen: 11:20 ROS Limited/Unobtainable: No Allergies: Coded Allergies: No Known Allergies (Unverified , 04/29/19) All Systems: reviewed and negative except above Subjective Feels better, ambulatory. Objective Last 24 Hour Vital Signs Date Time Temp Pulse Resp B/P (MAP) Pulse Ox O2 Delivery O2 Flow Rate FiO2 05/01/19 09:00 Room Air 05/01/19 08:25 99.2 05/01/19 08:00 99.2 70 19 117/67 (84) 97 05/01/19 04:00 98.2 74 18 108/62 (77) 95 05/01/19 00:00 99.7 73 18 120/70 (87) 94 04/30/19 21:00 Room Air 04/30/19 20:00 100.3 75 18 115/63 (80) 95 04/30/19 18:00 101.1 04/30/19 18:00 101.1 04/30/19 16:30 100.7 82 18 119/68 (85) 96 04/30/19 13:55 98.3 73 18 122/62 (82) 95 04/30/19 12:55 99.7 74 20 123/60 (81) 95 04/30/19 12:40 99.2 76 20 119/64 96 Nasal Cannula 3 04/30/19 12:30 77 18 120/62 97 Nasal Cannula 3 04/30/19 12:20 74 19 127/70 96 Nasal Cannula 3 04/30/19 12:10 71 18 131/72 94 Nasal Cannula 3 04/30/19 12:00 80 17 127/72 95 Simple Mask 6 04/30/19 11:55 80 16 124/73 97 Simple Mask 6 04/30/19 11:53 98.1 80 14 137/79 96 Simple Mask 6 04/30/19 11:50 78 18 99 04/30/19 11:49 81 16 98 Intake and Output 04/30/19 05/01/19 19:00 07:00 Intake Total 1485.0 ml 1227.5 ml Output Total 11 ml 500 ml Balance 1474.0 ml 727.5 ml Intake IV Total 1485.0 ml 1227.5 ml Output Urine Total 1 ml 500 ml Estimated Blood Loss 10 ml # Voids 2 Laboratory Tests 05/01/19 05:25: White Blood Count 19.4H, Red Blood Count 4.77, Hemoglobin 14.0L, Hematocrit 41.0L, Mean Corpuscular Volume 86, Mean Corpuscular Hemoglobin 29.3, Mean Corpuscular Hemoglobin Concent 34.1, Red Cell Distribution Width 11.5L, Platelet Count 261, Mean Platelet Volume 7.8, Neutrophils (%) (Auto) , Lymphocytes (%) (Auto) , Monocytes (%) (Auto) , Eosinophils (%) (Auto) , Basophils (%) (Auto) , Differential Total Cells Counted 100, Neutrophils % ( Manual) 88H, Lymphocytes % (Manual) 8L, Monocytes % (Manual) 4, Eosinophils % ( Manual) 0, Basophils % (Manual) 0, Band Neutrophils 0, Platelet Estimate Adequate, Platelet Morphology Normal, Red Blood Cell Morphology Normal, Sodium Level 138, Potassium Level 4.3, Chloride Level 105, Carbon Dioxide Level 24, Anion Gap 9, Blood Urea Nitrogen 12, Creatinine 0.7, Estimat Glomerular Filtration Rate > 60, Glucose Level 130H, Calcium Level 7.9L Height (Feet): 5 Height (Inches): 2.00 Weight (Pounds): 186 General Appearance: WD/WN EENT: PERRL/EOMI Neck: non-tender, normal alignment Cardiovascular: normal peripheral pulses, normal rate Respiratory/Chest: chest wall non-tender, lungs clear Abdomen: normal bowel sounds, non tender 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
[2019-05-01 12:00] VITALS: BP 126/81
[2019-05-01 16:00] VITALS: BP 127/79
--- NOTE | 2019-05-01 18:04 | NUR ---
NURSE NOTES: UNEVENTFUL DAY. PATIENT REMAINS STABLE. PAIN CONTROLLED WITH PAIN MED PRESCRIBED. VSS.AFEBRILE.
--- NOTE | 2019-05-01 19:06 | NUR ---
HAND-OFF: Report given to SONJA SPAIN RN.
--- NOTE | 2019-05-01 19:10 | NUR ---
NURSE NOTES: Receive a report from CHRISTOPHER Flores. Round is done. Pt is awake and alert but feels tired after ambulation. Has not passed gas yet. OP site is clear without bleeding or oozing. Pain 5/10 after using bathroom. Will provide pain medication as ordered. Call light within reach. Will continue to monitor.
[2019-05-01 20:00] VITALS: BP 131/74
[2019-05-02] VITALS: BP 130/78
--- NOTE | 2019-05-02 | NUR ---
NURSE NOTES: No acute distress noted. Pain decreased by 2/10. Had passing gas and BM in the bathroom. Discomfort from gas relieved after that. On SCDs bilateral. Encourage I/S for lung care. No chilling or febrile sensation. Call light within reach. Will continue to monitor.
[2019-05-02 04:00] VITALS: BP 128/78
[2019-05-02] MEDS: D5 1/2NS w/KCl 20mEq 1,000 ML IV SCH ×2 (05:38→15:28)
[2019-05-02] MEDS: Piperacillin/Tazobactam 3.375 GM in NS 110 ML IVPB SCH ×3 (05:38→21:46)
[2019-05-02 05:54] LABS: BASOPHILS % (AUTO) 0.9 % (0.0-2.0); EOSINOPHILS % (AUTO) 0.4 % (0.0-3.0); HEMATOCRIT 41.9 % (42.0-52.0); HEMOGLOBIN 14.4 G/DL (14.2-18.0); LYMPHOCYTES % (AUTO) 9.5 % (20.0-45.0); MEAN CORPUSCULAR VOLUME 85 FL (80-99); NEUTROPHILS % (AUTO) 82.1 % (45.0-75.0); PLATELET COUNT 282 K/UL (150-450); RED BLOOD COUNT 4.94 M/UL (4.70-6.10); RED CELL DISTRIBUTION WIDTH 11.1 % (11.6-14.8); WHITE BLOOD COUNT 16.9 K/UL (4.8-10.8)
[2019-05-02 06:02] LABS: ANION GAP 6 mmol/L (5-15); BLOOD UREA NITROGEN 12 mg/dL (7-18); CALCIUM 7.9 MG/DL (8.5-10.1); CARBON DIOXIDE 26 MMOL/L (21-32); CHLORIDE 102 MMOL/L (98-107); CREATININE 0.8 MG/DL (0.55-1.30); POTASSIUM 3.9 MMOL/L (3.5-5.1); SODIUM 134 MMOL/L (136-145)
--- NOTE | 2019-05-02 07:20 | NUR ---
HAND-OFF: Report given to CHRISTOPHER Boo. Round is done. Starting clear liquid diet.
--- NOTE | 2019-05-02 07:30 | NUR ---
NURSE NOTES: Received pt from O RN. Pt is alert and orient. pt is in RA, no SOB or acute respiratory distress noted. pt has intact iv access RAC 20G and L wrist 22g is running well. abd dressing is intact. pt is eating breakfast independently. all needs attended, bed is locked and is in the lowest position, call light within easy reach, will continue to monitor.
[2019-05-02 08:00] VITALS: BP 135/68
[2019-05-02] MEDS: Pantoprazole Inj IVP SCH (08:44)
[2019-05-02] MEDS: Heparin 5000 units/ml inj SUBQ SCH ×2 (08:45→20:12)
--- NOTE | 2019-05-02 10:50 | General Progress Note ---
Assessment/Plan Problem List: (1) Appendicitis ICD Codes: K37 - Unspecified appendicitis SNOMED: 88345110 Status: doing well Assessment/Plan: 38 y M admitted to the hospital due to acute abdominal pain found to be secondary to: # Acute Appendicitis - S/p Lap appendectomy with conversion to open appendectomy, POD # 2 - Follow up surgery input. - Tolerating clears, diet to be advanced per surgical recs - Pain control - Activity as tolerated - Anti nausea emetic as needed. - AM labs, monitor leukocytosis. IV antibiotic Zosyn in place. - Monitor for post operative complications #Hyperglycemia check HbA1c #Mild hyponatremia -Monitor, encourage PO intake - DVT ppx early ambulation, low risk - GI ppx with PPI -FULL CODE Subjective Date patient seen: May 02, 2019 ROS Limited/Unobtainable: No Constitutional: Denies: no symptoms, chills, diaphoresis, fever, malaise, weakness, other HEENT: Denies: no symptoms, eye pain, blurred vision, tearing, double vision, ear pain, ear discharge, nose pain, nose congestion, throat pain, throat swelling, mouth pain, mouth swelling, other Cardiovascular: Denies: no symptoms, chest pain, edema, irregular heart rate, lightheadedness, palpitations, syncope, other Respiratory: Denies: no symptoms, cough, orthopnea, shortness of breath, SOB with excertion, SOB at rest, sputum, stridor, wheezing, other Gastrointestinal/Abdominal: Denies: no symptoms, abdomen distended, abdominal pain, black stools, tarry stools, blood in stool, constipated, diarrhea, difficulty swallowing, nausea, poor appetite, poor fluid intake, rectal bleeding , vomiting, other Genitourinary: Denies: no symptoms, burning, discharge, frequency, flank pain, hematuria, incontinence, pain, urgency, other Neurologic/Psychiatric: Denies: no symptoms, anxiety, depressed, emotional problems, headache, numbness, paresthesia, pre-existing deficit, seizure, tingling, tremors, weakness, other Endocrine: Denies: no symptoms, excessive sweating, flushing, intolerance to cold, intolerance to heat, increased hunger, increased thirst, increased urine, unexplained weight gain, unexplained weight loss, other Hematologic/Lymphatic: Denies: no symptoms, anemia, easy bleeding, easy bruising, other Allergies: Coded Allergies: No Known Allergies (Unverified , 04/29/19) Subjective no acute events tolerating clears wbc trending down Objective Last 24 Hour Vital Signs Date Time Temp Pulse Resp B/P (MAP) Pulse Ox O2 Delivery O2 Flow Rate FiO2 05/02/19 09:00 Room Air 05/02/19 08:00 97.8 80 19 135/68 (90) 98 05/02/19 04:00 99.0 78 20 128/78 (95) 95 05/02/19 00:00 99.0 82 20 130/78 (95) 95 05/01/19 21:00 Room Air 05/01/19 20:00 98.7 83 20 131/74 (93) 93 05/01/19 16:00 98.9 78 20 127/79 (95) 99 05/01/19 14:09 99.5 05/01/19 12:00 99.5 77 20 126/81 (96) 96 Intake and Output 05/01/19 05/02/19 19:00 07:00 Intake Total 1392.5 ml 1200 ml Output Total 600 ml Balance 792.5 ml 1200 ml Intake Oral 0 ml IV Total 1392.5 ml 1200 ml Output Urine Total 600 ml # Voids 3 # Bowel Movements 1 Laboratory Tests 05/02/19 05:25: White Blood Count 16.9H, Red Blood Count 4.94, Hemoglobin 14.4, Hematocrit 41.9L , Mean Corpuscular Volume 85, Mean Corpuscular Hemoglobin 29.2, Mean Corpuscular Hemoglobin Concent 34.5, Red Cell Distribution Width 11.1L, Platelet Count 282, Mean Platelet Volume 7.3, Neutrophils (%) (Auto) 82.1H, Lymphocytes (%) (Auto) 9.5L, Monocytes (%) (Auto) 7.0, Eosinophils (%) (Auto) 0.4, Basophils (%) (Auto) 0.9, Sodium Level 134L, Potassium Level 3.9, Chloride Level 102, Carbon Dioxide Level 26, Anion Gap 6, Blood Urea Nitrogen 12, Creatinine 0.8, Estimat Glomerular Filtration Rate > 60, Glucose Level 131H, Calcium Level 7.9L Height (Feet): 5 Height (Inches): 2.00 Weight (Pounds): 186 Objective General Appearance: WD/WN EENT: PERRL/EOMI Neck: non-tender, normal alignment Cardiovascular: normal peripheral pulses, normal rate Respiratory/Chest: chest wall non-tender, lungs clear Abdomen: normal bowel sounds, non tender, RLL dressing c/d/i 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 May 02, 2019 10:50
[2019-05-02 11:42] VITALS: BP 122/74
--- NOTE | 2019-05-02 12:13 | General Surgery Progress Note ---
General Surgery-Progress Note Subjective Procedure Performed attempted laparoscopic appendectomy, open appendectomy Symptoms: improved, BM Objective Last 24 Hour Vital Signs Date Time Temp Pulse Resp B/P (MAP) Pulse Ox O2 Delivery O2 Flow Rate FiO2 05/02/19 11:42 99.3 74 19 122/74 (90) 98 05/02/19 09:00 Room Air 05/02/19 08:00 97.8 80 19 135/68 (90) 98 05/02/19 04:00 99.0 78 20 128/78 (95) 95 05/02/19 00:00 99.0 82 20 130/78 (95) 95 05/01/19 21:00 Room Air 05/01/19 20:00 98.7 83 20 131/74 (93) 93 05/01/19 16:00 98.9 78 20 127/79 (95) 99 05/01/19 14:09 99.5 I&O Intake and Output 05/01/19 05/02/19 19:00 07:00 Intake Total 1392.5 ml 1200 ml Output Total 600 ml Balance 792.5 ml 1200 ml Intake Oral 0 ml IV Total 1392.5 ml 1200 ml Output Urine Total 600 ml # Voids 3 # Bowel Movements 1 Dressing: dry Drains: none Respiratory: clear Abdomen: soft, flat, non-tender, present bowel sounds Extremities: no tenderness Laboratory Tests Test 05/02/19 05:25 White Blood Count 16.9 K/UL (4.8-10.8) H Red Blood Count 4.94 M/UL (4.70-6.10) Hemoglobin 14.4 G/DL (14.2-18.0) Hematocrit 41.9 % (42.0-52.0) L Mean Corpuscular Volume 85 FL (80-99) Mean Corpuscular Hemoglobin 29.2 PG (27.0-31.0) Mean Corpuscular Hemoglobin Concent 34.5 G/DL (32.0-36.0) Red Cell Distribution Width 11.1 % (11.6-14.8) L Platelet Count 282 K/UL (150-450) Mean Platelet Volume 7.3 FL (6.5-10.1) Neutrophils (%) (Auto) 82.1 % (45.0-75.0) H Lymphocytes (%) (Auto) 9.5 % (20.0-45.0) L Monocytes (%) (Auto) 7.0 % (1.0-10.0) Eosinophils (%) (Auto) 0.4 % (0.0-3.0) Basophils (%) (Auto) 0.9 % (0.0-2.0) Sodium Level 134 MMOL/L (136-145) L Potassium Level 3.9 MMOL/L (3.5-5.1) Chloride Level 102 MMOL/L (98-107) Carbon Dioxide Level 26 MMOL/L (21-32) Anion Gap 6 mmol/L (5-15) Blood Urea Nitrogen 12 mg/dL (7-18) Creatinine 0.8 MG/DL (0.55-1.30) Estimat Glomerular Filtration Rate > 60 mL/min (>60) Glucose Level 131 MG/DL (74-106) H Calcium Level 7.9 MG/DL (8.5-10.1) L Assessment Additional Comments S/P appy Plan Additional Comments Continue IV Antibiotics Francisco Ni MD May 02, 2019 12:12
[2019-05-02 16:00] VITALS: BP 115/67
[2019-05-02] MEDS: Docusate Sod/Senna tab ORAL SCH (17:21)
--- NOTE | 2019-05-02 19:12 | NUR ---
HAND-OFF: Report given to MAYITO WHITE .
[2019-05-02 20:13] VITALS: BP 129/79
--- NOTE | 2019-05-02 21:36 | NUR ---
NURSE NOTE: Pt is A/Ox4 with stable VS. Ambulating in the room. Orders reviewed and physical assessment completed. Call garduno is within reach, will continue to monitor.
[2019-05-02] MEDS: traMADol 50mg tab ORAL PRN (21:47)
[2019-05-03 00:28] VITALS: BP 124/77
[2019-05-03] MEDS: D5 1/2NS w/KCl 20mEq 1,000 ML IV SCH (00:32)
[2019-05-03 04:42] VITALS: BP 118/71
[2019-05-03] MEDS: Piperacillin/Tazobactam 3.375 GM in NS 110 ML IVPB SCH ×3 (05:43→21:57)
[2019-05-03 06:58] LABS: ANION GAP 9 mmol/L (5-15); BLOOD UREA NITROGEN 9 mg/dL (7-18); CALCIUM 7.7 MG/DL (8.5-10.1); CARBON DIOXIDE 26 MMOL/L (21-32); CHLORIDE 103 MMOL/L (98-107); CREATININE 0.8 MG/DL (0.55-1.30); POTASSIUM 3.7 MMOL/L (3.5-5.1); SODIUM 137 MMOL/L (136-145)
[2019-05-03 06:59] LABS: BASOPHILS % (AUTO) 0.7 % (0.0-2.0); EOSINOPHILS % (AUTO) 3.5 % (0.0-3.0); HEMATOCRIT 38.5 % (42.0-52.0); HEMOGLOBIN 13.6 G/DL (14.2-18.0); LYMPHOCYTES % (AUTO) 14.4 % (20.0-45.0); MEAN CORPUSCULAR VOLUME 84 FL (80-99); MONOCYTES % (AUTO) 8.6 % (1.0-10.0); NEUTROPHILS % (AUTO) 72.7 % (45.0-75.0); PLATELET COUNT 276 K/UL (150-450); RED BLOOD COUNT 4.56 M/UL (4.70-6.10)
[2019-05-03 08:00] VITALS: BP 118/75
--- NOTE | 2019-05-03 08:04 | NUR ---
NURSES NOTE: Patient in bed, A/O X4, able to communicate needs effectively. No outward s/s of distress noted. Breathing is even and unlabored on RA. Dressing, abdominal site x3 clean, dry and intact. Patient states he is experiencing pain in the abdominal region 2/10 but declines pain meds for the moment. R AC IV, 20 gauge is clean, patent with no s/s of infection, running Zosyn 3.375mg. L wrist IV 22 gauge is clean, patent also no s/s of infection noted and is running D5 1/2 NS 20KCL. All due medications will be given. Bed at lowest level, call light within reach. Patient will continue to be monitored.
--- NOTE | 2019-05-03 08:16 | NUR ---
CASE MANAGEMENT: REVIEW 05/01/19 SI:POD# 1 OPEN APPENDECTOMY 99.2 70 19 117/67 97% ON RA WBC 19.4; CA+ 7.9; BG 130 IS: IV ZOSYN Q8HR IV DEXTROSE @100ML/ HR HEPARIN SQ Q12HR PROTONIX PO QD ERON-COLACE PO BID : 3E MED SURG UNIT DCP: PATIENT TO BE DISCHARGED TO HOME ONCE MEDICALLY CLEARED. CASE MANAGEMENT: REVIEW 05/02/19 SI:POD#2 OPEN APPENDECTOMY 97.8 80 19 135/68 98% ON RA WBC 16.9; CA+ 7.9;NA+ 134; BG 131 IS: IV ZOSYN Q8HR IV DEXTROSE @100ML/ HR HEPARIN SQ Q12HR PROTONIX PO QD ERON-COLACE PO BID :3E MED SURG DCP: PATIENT TO BE DISCHARGED TO HOME ONCE MEDICALLY CLEARED. CASE MANAGEMENT: REVIEW 05/03/19 SI:POD#3 OPEN APPENDECTOMY 98.6 65 17 118/71 96% ON RA CA+ 7.7;WBC 12.0 IS: IV ZOSYN Q8HR IV DEXTROSE @100ML/ HR HEPARIN SQ Q12HR PROTONIX PO QD ERON-COLACE PO BID :3E MED SURG PLAN: START ON FULL LIQ DIET DCP: PATIENT TO BE DISCHARGED TO HOME ONCE MEDICALLY CLEARED.
[2019-05-03] MEDS: Heparin 5000 units/ml inj SUBQ SCH ×2 (09:09→20:29)
[2019-05-03] MEDS: Docusate Sod/Senna tab ORAL SCH ×2 (09:10→17:35)
--- NOTE | 2019-05-03 10:05 | General Progress Note ---
Assessment/Plan Problem List: (1) Appendicitis ICD Codes: K37 - Unspecified appendicitis SNOMED: [id number] Status: doing well Assessment/Plan: 38 y M admitted to the hospital due to acute abdominal pain found to be secondary to: # Acute Appendicitis - S/p Lap appendectomy with conversion to open appendectomy, POD # 3 - Follow up surgery input. - Tolerating clears, diet to be advanced per surgical recs - Pain control - Activity as tolerated - Anti nausea emetic as needed. - AM labs, monitor leukocytosis. IV antibiotic Zosyn in place. - Monitor for post operative complications -diet to be advanced by surgeon #Hyperglycemia- probably reactive check HbA1- 5.8 #Mild hyponatremia -Monitor, encourage PO intake - DVT ppx early ambulation, low risk - GI ppx with PPI -FULL CODE I spent 40 minute son this encounter. >50% spent on counselling and care coordination. Subjective Date patient seen: May 03, 2019 ROS Limited/Unobtainable: No Constitutional: Denies: no symptoms, chills, diaphoresis, fever, malaise, weakness, other HEENT: Denies: no symptoms, eye pain, blurred vision, tearing, double vision, ear pain, ear discharge, nose pain, nose congestion, throat pain, throat swelling, mouth pain, mouth swelling, other Cardiovascular: Denies: no symptoms, chest pain, edema, irregular heart rate, lightheadedness, palpitations, syncope, other Respiratory: Denies: no symptoms, cough, orthopnea, shortness of breath, SOB with excertion, SOB at rest, sputum, stridor, wheezing, other Gastrointestinal/Abdominal: Denies: no symptoms, abdomen distended, abdominal pain, black stools, tarry stools, blood in stool, constipated, diarrhea, difficulty swallowing, nausea, poor appetite, poor fluid intake, rectal bleeding , vomiting, other Genitourinary: Denies: no symptoms, burning, discharge, frequency, flank pain, hematuria, incontinence, pain, urgency, other Neurologic/Psychiatric: Denies: no symptoms, anxiety, depressed, emotional problems, headache, numbness, paresthesia, pre-existing deficit, seizure, tingling, tremors, weakness, other Endocrine: Denies: no symptoms, excessive sweating, flushing, intolerance to cold, intolerance to heat, increased hunger, increased thirst, increased urine, unexplained weight gain, unexplained weight loss, other Hematologic/Lymphatic: Denies: no symptoms, anemia, easy bleeding, easy bruising, other Allergies: Coded Allergies: No Known Allergies (Unverified , 04/29/19) Subjective no acute event. tolerating clears, ambulating. Has BM, using incentive spirometry. WBC trending down nicely. Objective Last 24 Hour Vital Signs Date Time Temp Pulse Resp B/P (MAP) Pulse Ox O2 Delivery O2 Flow Rate FiO2 05/03/19 04:42 98.6 65 17 118/71 (87) 96 05/03/19 00:28 99.2 73 17 124/77 (93) 95 05/02/19 20:19 Room Air 05/02/19 20:13 99.7 77 18 129/79 (96) 95 05/02/19 16:00 98.3 76 19 115/67 (83) 98 05/02/19 11:42 99.3 74 19 122/74 (90) 98 Intake and Output 05/02/19 05/03/19 19:00 07:00 Intake Total 2292.5 ml 1220 ml Balance 2292.5 ml 1220 ml Intake Oral 900 ml 120 ml IV Total 1392.5 ml 1100 ml # Voids 2 3 Laboratory Tests 05/03/19 05:24: White Blood Count 12.0H, Red Blood Count 4.56L, Hemoglobin 13.6L, Hematocrit 38.5L, Mean Corpuscular Volume 84, Mean Corpuscular Hemoglobin 29.8, Mean Corpuscular Hemoglobin Concent 35.3, Red Cell Distribution Width 11.0L, Platelet Count 276, Mean Platelet Volume 7.3, Neutrophils (%) (Auto) 72.7, Lymphocytes (%) (Auto) 14.4L, Monocytes (%) (Auto) 8.6, Eosinophils (%) (Auto) 3.5H, Basophils (%) (Auto) 0.7, Sodium Level 137, Potassium Level 3.7, Chloride Level 103, Carbon Dioxide Level 26, Anion Gap 9, Blood Urea Nitrogen 9, Creatinine 0.8, Estimat Glomerular Filtration Rate > 60, Glucose Level 111H, Hemoglobin A1c 5.8, Calcium Level 7.7L Height (Feet): 5 Height (Inches): 2.00 Weight (Pounds): 186 Objective General Appearance: WD/WN EENT: PERRL/EOMI Neck: non-tender, normal alignment Cardiovascular: normal peripheral pulses, normal rate Respiratory/Chest: chest wall non-tender, lungs clear Abdomen: normal bowel sounds, non tender, RLL dressing c/d/i 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 May 03, 2019 10:05
[2019-05-03 12:00] VITALS: BP 125/73
[2019-05-03 16:00] VITALS: BP 116/73
--- NOTE | 2019-05-03 16:10 | NUR ---
NURSES NOTE: Dr. morrell called to advise as to when patient can be released. says he will be in later to see the patient, process necessary orders and in the mean time diet can be advanced to regular diet. Order processed in the system.
--- NOTE | 2019-05-03 17:03 | General Surgery Progress Note ---
General Surgery-Progress Note Subjective Procedure Performed attempted laparoscopic appendectomy, open appendectomy Symptoms: improved, BM Objective Last 24 Hour Vital Signs Date Time Temp Pulse Resp B/P (MAP) Pulse Ox O2 Delivery O2 Flow Rate FiO2 05/03/19 16:00 98.9 73 18 116/73 (87) 97 05/03/19 12:00 98.6 70 18 125/73 (90) 97 05/03/19 09:00 Room Air 05/03/19 08:00 98.8 65 18 118/75 (89) 96 05/03/19 04:42 98.6 65 17 118/71 (87) 96 05/03/19 00:28 99.2 73 17 124/77 (93) 95 05/02/19 20:19 Room Air 05/02/19 20:13 99.7 77 18 129/79 (96) 95 I&O Intake and Output 05/02/19 05/03/19 19:00 07:00 Intake Total 2292.5 ml 1220 ml Balance 2292.5 ml 1220 ml Intake Oral 900 ml 120 ml IV Total 1392.5 ml 1100 ml # Voids 2 3 Dressing: dry Wound: clean Drains: none Respiratory: clear Abdomen: soft, flat, non-tender, present bowel sounds Extremities: no edema, no tenderness Laboratory Tests Test 05/03/19 05:24 White Blood Count 12.0 K/UL (4.8-10.8) H Red Blood Count 4.56 M/UL (4.70-6.10) L Hemoglobin 13.6 G/DL (14.2-18.0) L Hematocrit 38.5 % (42.0-52.0) L Mean Corpuscular Volume 84 FL (80-99) Mean Corpuscular Hemoglobin 29.8 PG (27.0-31.0) Mean Corpuscular Hemoglobin Concent 35.3 G/DL (32.0-36.0) Red Cell Distribution Width 11.0 % (11.6-14.8) L Platelet Count 276 K/UL (150-450) Mean Platelet Volume 7.3 FL (6.5-10.1) Neutrophils (%) (Auto) 72.7 % (45.0-75.0) Lymphocytes (%) (Auto) 14.4 % (20.0-45.0) L Monocytes (%) (Auto) 8.6 % (1.0-10.0) Eosinophils (%) (Auto) 3.5 % (0.0-3.0) H Basophils (%) (Auto) 0.7 % (0.0-2.0) Sodium Level 137 MMOL/L (136-145) Potassium Level 3.7 MMOL/L (3.5-5.1) Chloride Level 103 MMOL/L (98-107) Carbon Dioxide Level 26 MMOL/L (21-32) Anion Gap 9 mmol/L (5-15) Blood Urea Nitrogen 9 mg/dL (7-18) Creatinine 0.8 MG/DL (0.55-1.30) Estimat Glomerular Filtration Rate > 60 mL/min (>60) Glucose Level 111 MG/DL (74-106) H Hemoglobin A1c 5.8 % (4.3-6.0) Calcium Level 7.7 MG/DL (8.5-10.1) L Assessment Additional Comments S/P Appy Plan Additional Comments can be discharged in AM if WBC is below 10K Francisco Ni MD May 03, 2019 17:03
--- NOTE | 2019-05-03 19:25 | NUR ---
HAND OFF: Report given to CHRISTOPHER Lea. Patient left in stable condition.
--- NOTE | 2019-05-03 20:01 | NUR ---
NURSE NOTE: Pt is A/Ox4 with stable VS. Orders reviewed and physical assessment completed. Pt sitting in chair, comfortable. Call garduno is within reach, will continue to monitor.
[2019-05-03 20:39] VITALS: BP 122/84
[2019-05-04 00:54] VITALS: BP 136/67
[2019-05-04 04:58] VITALS: BP 131/73
[2019-05-04] MEDS: traMADol 50mg tab ORAL PRN (05:01)
[2019-05-04 06:17] LABS: BASOPHILS % (AUTO) 1.2 % (0.0-2.0); EOSINOPHILS % (AUTO) 5.9 % (0.0-3.0); HEMATOCRIT 42.8 % (42.0-52.0); HEMOGLOBIN 14.7 G/DL (14.2-18.0); LYMPHOCYTES % (AUTO) 18.5 % (20.0-45.0); MEAN CORPUSCULAR VOLUME 85 FL (80-99); MONOCYTES % (AUTO) 7.9 % (1.0-10.0); NEUTROPHILS % (AUTO) 66.5 % (45.0-75.0); PLATELET COUNT 358 K/UL (150-450); RED BLOOD COUNT 5.01 M/UL (4.70-6.10); RED CELL DISTRIBUTION WIDTH 11.1 % (11.6-14.8); WHITE BLOOD COUNT 11.5 K/UL (4.8-10.8)
[2019-05-04] MEDS: Piperacillin/Tazobactam 3.375 GM in NS 110 ML IVPB SCH ×2 (06:18→14:50)
--- NOTE | 2019-05-04 07:27 | NUR ---
HAND-OFF: Report given to Kaykay.
--- NOTE | 2019-05-04 07:28 | NUR ---
NURSE NOTES: Received patient on bed awake. No SOB or cardiac distress. IV site intact and patent, no s/s of infiltration. Wound adele intact, post op site dry, no s/s of infection noted. Lap site dressings dry and intact. No complaints of pain at this time. HOB elevated. Bed locked in lowest position. Will continue plan of care.
[2019-05-04 08:00] VITALS: BP 116/69
[2019-05-04] MEDS: Docusate Sod/Senna tab ORAL SCH ×2 (08:29→18:00)
[2019-05-04] MEDS: Heparin 5000 units/ml inj SUBQ SCH (08:31)
--- NOTE | 2019-05-04 10:37 | General Progress Note ---
Assessment/Plan Problem List: (1) Appendicitis ICD Codes: K37 - Unspecified appendicitis SNOMED: [id number] Status: doing well Assessment/Plan: 38 y M admitted to the hospital due to acute abdominal pain found to be secondary to: # Acute Appendicitis - S/p Lap appendectomy with conversion to open appendectomy, POD # 4 - Tolerating diet - Pain control - Activity as tolerated - Anti nausea emetic as needed. - AM labs, monitor leukocytosis. IV antibiotic Zosyn in place. - Monitor for post operative complications -diet to be advanced by surgeon #Hyperglycemia- probably reactive check HbA1- 5.8 #Mild hyponatremia -Monitor, encourage PO intake - DVT ppx early ambulation, low risk - GI ppx with PPI -FULL CODE -Disposition: per surgery, dc when wbc <10 I spent 25 minutes on this encounter. >50% spent on counselling and care coordination. Subjective Date patient seen: May 04, 2019 ROS Limited/Unobtainable: No Constitutional: Denies: no symptoms, chills, diaphoresis, fever, malaise, weakness, other HEENT: Denies: no symptoms, eye pain, blurred vision, tearing, double vision, ear pain, ear discharge, nose pain, nose congestion, throat pain, throat swelling, mouth pain, mouth swelling, other Cardiovascular: Denies: no symptoms, chest pain, edema, irregular heart rate, lightheadedness, palpitations, syncope, other Respiratory: Denies: no symptoms, cough, orthopnea, shortness of breath, SOB with excertion, SOB at rest, sputum, stridor, wheezing, other Gastrointestinal/Abdominal: Denies: no symptoms, abdomen distended, abdominal pain, black stools, tarry stools, blood in stool, constipated, diarrhea, difficulty swallowing, nausea, poor appetite, poor fluid intake, rectal bleeding , vomiting, other Genitourinary: Denies: no symptoms, burning, discharge, frequency, flank pain, hematuria, incontinence, pain, urgency, other Neurologic/Psychiatric: Denies: no symptoms, anxiety, depressed, emotional problems, headache, numbness, paresthesia, pre-existing deficit, seizure, tingling, tremors, weakness, other Endocrine: Denies: no symptoms, excessive sweating, flushing, intolerance to cold, intolerance to heat, increased hunger, increased thirst, increased urine, unexplained weight gain, unexplained weight loss, other Hematologic/Lymphatic: Denies: no symptoms, anemia, easy bleeding, easy bruising, other Allergies: Coded Allergies: No Known Allergies (Unverified , 04/29/19) Subjective no acute event. tolerating clears, ambulating. Has BM, using incentive spirometry. WBC trending down nicely. Per surgeon dc when <10 Objective Last 24 Hour Vital Signs Date Time Temp Pulse Resp B/P (MAP) Pulse Ox O2 Delivery O2 Flow Rate FiO2 05/04/19 09:00 Room Air 05/04/19 08:00 99.2 69 18 116/69 (85) 98 05/04/19 04:58 99.2 58 18 131/73 (92) 97 05/04/19 00:54 98.3 59 18 136/67 (90) 97 05/03/19 20:39 99.7 73 18 122/84 (97) 100 05/03/19 19:59 Room Air 05/03/19 16:00 98.9 73 18 116/73 (87) 97 05/03/19 12:00 98.6 70 18 125/73 (90) 97 Intake and Output 05/03/19 05/04/19 19:00 07:00 Intake Total 1180.0 ml 240 ml Balance 1180.0 ml 240 ml Intake Oral 960 ml 240 ml IV Total 220.0 ml # Voids 3 # Bowel Movements 4 Laboratory Tests 05/04/19 05:20: White Blood Count 11.5H, Red Blood Count 5.01, Hemoglobin 14.7, Hematocrit 42.8 , Mean Corpuscular Volume 85, Mean Corpuscular Hemoglobin 29.3, Mean Corpuscular Hemoglobin Concent 34.2, Red Cell Distribution Width 11.1L, Platelet Count 358, Mean Platelet Volume 6.6, Neutrophils (%) (Auto) 66.5, Lymphocytes (%) (Auto) 18.5L, Monocytes (%) (Auto) 7.9, Eosinophils (%) (Auto) 5.9H, Basophils (%) (Auto) 1.2 Height (Feet): 5 Height (Inches): 2.00 Weight (Pounds): 185 Objective General Appearance: WD/WN EENT: PERRL/EOMI Neck: non-tender, normal alignment Cardiovascular: normal peripheral pulses, normal rate Respiratory/Chest: chest wall non-tender, lungs clear Abdomen: normal bowel sounds, non tender, RLL dressing c/d/i 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 May 04, 2019 10:37
--- NOTE | 2019-05-04 10:43 | NUR ---
CASE MANAGEMENT: REVIEW 05/04/19 SI:POD#4 OPEN APPENDECTOMY 99.2 69 18 116/69 98% ON RA IS: IV ZOSYN Q8HR HEPARIN SQ Q12HR PROTONIX PO QD ERON-COLACE PO BID :3E MED SURG PLAN: START REG DIET DCP: PATIENT TO BE DISCHARGED TO HOME ONCE MEDICALLY CLEARED.
[2019-05-04 12:00] VITALS: BP 118/72
--- NOTE | 2019-05-04 14:11 | NUR ---
NURSE NOTES: Spoke to Dr Ni, said patient is ok for discharge.
[2019-05-04] MEDS ORDERED: CIPROFLOXACIN250 MG PO (17:29)
[2019-05-04] MEDS ORDERED: TRAMADOL HCL50 MG ORAL (17:32)
[2019-05-04] MEDS ORDERED: COLACE100 MG ORAL (17:35)
--- NOTE | 2019-05-04 19:55 | NUR ---
HAND-OFF: Report given to Lakesha.
--- NOTE | 2019-05-05 10:39 | Discharge Summary ---
Discharge Summary Hospital Course Date of Admission Apr 30, 2019 at 01:48 Date of Discharge May 04, 2019 at 21:10 Admitting Diagnosis APPENDICITIS HPI Indio Sosa is a 38 year old male who was admitted on Apr 30, 2019 at 01 :48 for Appendicitis Consultations Surgery: Dr. Ni Procedures open appendectomy Hospital Course 38 y M admitted to the hospital due to acute abdominal pain found to be secondary to: # Acute Appendicitis - S/p Lap appendectomy with conversion to open appendectomy, POD # 4 - Tolerating diet - Pain control - Activity as tolerated - Anti nausea emetic as needed. - AM labs, monitor leukocytosis. IV antibiotic Zosyn in place. - Monitor for post operative complications #Hyperglycemia- probably reactive check HbA1- 5.8 #Mild hyponatremia -Monitor, encourage PO intake - DVT ppx early ambulation, low risk - GI ppx with PPI -FULL CODE -Disposition: per surgery, dc when wbc <10 I spent 35 minutes on this encounter. >50% spent on counselling and care coordination. Discharge Medications Continued Medications: Ciprofloxacin* (Ciprofloxacin*) 250 Mg Tablet 500 MG PO BID, #14 TAB (This prescription has been renewed) Docusate Sodium* (Colace*) 100 Mg Capsule 100 MG ORAL THREE TIMES A DAY, #20 CAP (This prescription has been renewed) Tramadol Hcl* (Ultram*) 50 Mg Tablet 50 MG ORAL Q6H PRN for For Pain, #20 TAB 0 Refills (This prescription has been renewed) Discharge Condition Upon Discharge: stable Discharge Disposition Patient was discharged to home Discharge Diagnoses: (1) Appendicitis Victorino Jacobs M.D. May 05, 2019 10:39
== END 2019-05-04 21:10 | disposition home or self-care (01) | DRG 234 ==
LOC: EMR 23:55 → 3E 04-30 01:48 → EDBEDREQ 04-30 02:15
PROC: 0WJG4ZZ Inspection of Peritoneal Cavity, Percutaneous Endoscopic Approach (ICD-10-PCS; 2019-04-30)
PROC: 0DTJ0ZZ Resection of Appendix, Open Approach (ICD-10-PCS; principal; 2019-04-30 09:30)
DX: K35.80 Unspecified acute appendicitis (principal); R73.9 Hyperglycemia, unspecified; E87.1 Hypo-osmolality and hyponatremia; E87.6 Hypokalemia
CPT/HCPCS: 36415; 74177; 80048; 80053; 81003; 83036; 83690; 85007; 85025; 85610; 85730; 86850; 86900; 86901; 94003; 94150; 96360; 99285; C9399; J2405; J2710; J2765; J7030